=== PATIENT | male | born 1955 | race Caucasian/White ===

== ENCOUNTER 2016-12-08 16:17 | Inpatient (IN) | payer OTHER ==
[~2016-12-08 16:17] MED LIST: CEFTIN250 MG PO; DARVOCET-N 1001 EA PO; GLUCOSAMINE & C1 CAP PO; LOVENOX; PRENATAL-U CAPS1 CAP PO; TYLENOL #31 TAB PO; TYLENOL650 MG PO
[2016-12-08] MEDS ORDERED: CRESTOR5 M1 PO (17:09)
[2016-12-08] MEDS ORDERED: ASPIRIN325 M3 PO (17:09)
[2016-12-09 02:22] LABS: INR 1.2 INR (0.9-1.1); PROTHROMBIN TIME 13.8 SECONDS (9.0-13.6)
[2016-12-09 02:38] LABS: TSH-THYROID STIMULATING HORM. 12.9 uIU/ml (0.40-3.80)
[2016-12-09 06:20] LABS: ANION GAP 23 mmol/L (0-20); BLOOD UREA NITROGEN 20 mg/dl (6-24); CALCIUM 9.7 mg/dl (8.5-10.5); CARBON DIOXIDE-VENOUS 24 mmol/L (22-32); CHLORIDE 99 mmol/l (96-110); CREATININE 1.09 mg/dl (0.60-1.30); MAGNESIUM 2.2 mg/dl (1.3-2.6); POTASSIUM 4.4 mmol/L (3.7-5.1); SODIUM 142 mmol/L (135-145); eGFR VALUE FOR BLACK >60 mL/Min
[2016-12-09 06:44] LABS: GLUCOSE 65 mg/dL (70-110)
[2016-12-09 16:47] LABS: BODY FLUID TYPE PLEURAL
[2016-12-09 17:27] LABS: BODY FLUID APPEARANCE HAZY (CLEAR); BODY FLUID COLOR YELLOW (COLORLESS); BODY FLUID RBC COUNT 1000 cmm (0); BODY FLUID TYPE PLEURAL; BODY FLUID VOLUME 1100 ml; BODY FLUID WBC COUNT 139 cmm
[2016-12-10 01:17] LABS: INR 1.2 INR (0.9-1.1); PROTHROMBIN TIME 13.7 SECONDS (9.0-13.6)
[2016-12-10 05:00] LABS: BASO % 0.5 % (0-2); EOS % 1.1 % (0-7); EOSINOPHIL ABSOLUTE COUNT 0.1 tho/cmm (0.0-0.7); HCT-HEMATOCRIT 44.8 % (36.0-53.5); HGB-HEMOGLOBIN 14.3 gm/dl (13.5-17.0); IMMATURE GRANULOCYTES ABSOLUTE 0.01 tho/cmm (0-0.03); IMMATURE GRANULOCYTES PERCENT 0.1 % (0-0.3); LYMPH ABSOLUTE COUNT 0.9 tho/cmm (0.8-4.5); MCH (MEAN CORPUSCULAR HGB) 30.4 pg (28.0-32.0); MCHC MEAN CORPUSCULAR HGB CONC 31.9 % (32.0-36.0); MCV (MEAN CELL VOLUME) 95.3 fl (82.0-96.0); MEAN PLATELET VOLUME 10.8 cmc (9.4-12.4); MONO % 8.9 % (0-12); MONOCYTE ABSOLUTE COUNT 0.7 tho/cmm (0.0-1.2); NEUTROPHIL ABSOLUTE COUNT 5.7 tho/cmm (1.6-8.0); NEUTROPHIL-AUTOMATED 5.7 tho/cmm (1.6-8.0); NEUTROPHILS % 77.4 % (40-80); PLATELET COUNT 190 tho/cmm (150-450); RED CELL DISTRIBUTION WIDTH 18.5 % (12.4-16.4); WHITE BLOOD COUNT 7.4 tho/cmm (4.0-10.0)
[2016-12-10 05:29] LABS: ALBUMIN 2.9 g/dl (3.5-5.0); ALKALINE PHOSPHATASE 167 U/L (33-138); ALT/SGPT 28 U/L (12-78); ANION GAP 22 mmol/L (0-20); AST/SGOT 34 U/L (10-40); BLOOD UREA NITROGEN 21 mg/dl (6-24); CALCIUM 9.1 mg/dl (8.5-10.5); CARBON DIOXIDE-VENOUS 26 mmol/L (22-32); CHLORIDE 97 mmol/l (96-110); CREATININE 1.12 mg/dl (0.60-1.30); GLUCOSE 81 mg/dL (70-110); MAGNESIUM 2.1 mg/dl (1.3-2.6); POTASSIUM 3.8 mmol/L (3.7-5.1); SODIUM 141 mmol/L (135-145); eGFR VALUE FOR BLACK >60 mL/Min
[2016-12-11 06:17] LABS: ANION GAP 24 mmol/L (0-20); BLOOD UREA NITROGEN 26 mg/dl (6-24); CALCIUM 9.5 mg/dl (8.5-10.5); CARBON DIOXIDE-VENOUS 25 mmol/L (22-32); CHLORIDE 95 mmol/l (96-110); POTASSIUM 4.1 mmol/L (3.7-5.1); SODIUM 140 mmol/L (135-145); eGFR VALUE FOR BLACK 60 mL/Min
[2016-12-11 06:22] LABS: CREATININE 1.45 mg/dl (0.60-1.30)
[2016-12-11 06:23] LABS: GLUCOSE 68 mg/dL (70-110)
[2016-12-12 07:38] LABS: ANION GAP 25 mmol/L (0-20); BLOOD UREA NITROGEN 29 mg/dl (6-24); CALCIUM 9.1 mg/dl (8.5-10.5); CARBON DIOXIDE-VENOUS 25 mmol/L (22-32); CHLORIDE 95 mmol/l (96-110); CREATININE 1.55 mg/dl (0.60-1.30); MAGNESIUM 1.9 mg/dl (1.3-2.6); POTASSIUM 4.1 mmol/L (3.7-5.1); SODIUM 141 mmol/L (135-145); eGFR VALUE FOR BLACK 55 mL/Min
[2016-12-12 07:42] LABS: GLUCOSE 68 mg/dL (70-110)
[2016-12-13 03:31] LABS: BASO % 0.8 % (0-2); BASO ABSOLUTE COUNT 0.1 tho/cmm (0.0-0.2); EOS % 2.6 % (0-7); EOSINOPHIL ABSOLUTE COUNT 0.2 tho/cmm (0.0-0.7); HCT-HEMATOCRIT 45.8 % (36.0-53.5); HGB-HEMOGLOBIN 14.7 gm/dl (13.5-17.0); IMMATURE GRANULOCYTES ABSOLUTE 0.02 tho/cmm (0-0.03); IMMATURE GRANULOCYTES PERCENT 0.3 % (0-0.3); LYMPH % 11.9 % (20-45); LYMPH ABSOLUTE COUNT 0.9 tho/cmm (0.8-4.5); MCH (MEAN CORPUSCULAR HGB) 30.6 pg (28.0-32.0); MCHC MEAN CORPUSCULAR HGB CONC 32.1 % (32.0-36.0); MCV (MEAN CELL VOLUME) 95.4 fl (82.0-96.0); MEAN PLATELET VOLUME 10.6 cmc (9.4-12.4); MONO % 9.1 % (0-12); MONOCYTE ABSOLUTE COUNT 0.7 tho/cmm (0.0-1.2); NEUTROPHIL ABSOLUTE COUNT 5.6 tho/cmm (1.6-8.0); NEUTROPHIL-AUTOMATED 5.6 tho/cmm (1.6-8.0); NEUTROPHILS % 75.3 % (40-80); PLATELET COUNT 155 tho/cmm (150-450); RED CELL DISTRIBUTION WIDTH 18.5 % (12.4-16.4); WHITE BLOOD COUNT 7.4 tho/cmm (4.0-10.0)
[2016-12-13 03:44] LABS: ANION GAP 23 mmol/L (0-20); BLOOD UREA NITROGEN 31 mg/dl (6-24); CALCIUM 9.7 mg/dl (8.5-10.5); CARBON DIOXIDE-VENOUS 26 mmol/L (22-32); CHLORIDE 95 mmol/l (96-110); CREATININE 1.32 mg/dl (0.60-1.30); GLUCOSE 74 mg/dL (70-110); POTASSIUM 4.5 mmol/L (3.7-5.1); SODIUM 139 mmol/L (135-145); eGFR VALUE FOR BLACK >60 mL/Min
[2016-12-14 05:20] LABS: ANION GAP 23 mmol/L (0-20); BLOOD UREA NITROGEN 29 mg/dl (6-24); CALCIUM 9.4 mg/dl (8.5-10.5); CARBON DIOXIDE-VENOUS 28 mmol/L (22-32); CHLORIDE 91 mmol/l (96-110); CREATININE 1.39 mg/dl (0.60-1.30); GLUCOSE 84 mg/dL (70-110); SODIUM 138 mmol/L (135-145); eGFR VALUE FOR BLACK >60 mL/Min
[2016-12-15 03:51] LABS: BASO % 1.6 % (0-2); BASO ABSOLUTE COUNT 0.1 tho/cmm (0.0-0.2); EOS % 3.5 % (0-7); EOSINOPHIL ABSOLUTE COUNT 0.3 tho/cmm (0.0-0.7); HCT-HEMATOCRIT 45.2 % (36.0-53.5); HGB-HEMOGLOBIN 14.4 gm/dl (13.5-17.0); IMMATURE GRANULOCYTES ABSOLUTE 0.03 tho/cmm (0-0.03); IMMATURE GRANULOCYTES PERCENT 0.4 % (0-0.3); LYMPH % 11.9 % (20-45); LYMPH ABSOLUTE COUNT 0.9 tho/cmm (0.8-4.5); MCH (MEAN CORPUSCULAR HGB) 30.6 pg (28.0-32.0); MCHC MEAN CORPUSCULAR HGB CONC 31.9 % (32.0-36.0); MCV (MEAN CELL VOLUME) 96.2 fl (82.0-96.0); MEAN PLATELET VOLUME 10.8 cmc (9.4-12.4); MONO % 10.3 % (0-12); MONOCYTE ABSOLUTE COUNT 0.8 tho/cmm (0.0-1.2); NEUTROPHIL ABSOLUTE COUNT 5.4 tho/cmm (1.6-8.0); NEUTROPHIL-AUTOMATED 5.4 tho/cmm (1.6-8.0); NEUTROPHILS % 72.3 % (40-80); PLATELET COUNT 144 tho/cmm (150-450); RED CELL DISTRIBUTION WIDTH 18.6 % (12.4-16.4); WHITE BLOOD COUNT 7.5 tho/cmm (4.0-10.0)
[2016-12-15 04:13] LABS: ALB/GLOB RATIO 1.1 (0.8-2.0); ALBUMIN 3.3 g/dl (3.5-5.0); ALKALINE PHOSPHATASE 214 U/L (33-138); ALT/SGPT 37 U/L (12-78); BLOOD UREA NITROGEN 29 mg/dl (6-24); CALCIUM 9.5 mg/dl (8.5-10.5); CARBON DIOXIDE-VENOUS 28 mmol/L (22-32); CHLORIDE 91 mmol/l (96-110); SODIUM 138 mmol/L (135-145); eGFR VALUE FOR BLACK >60 mL/Min
[2016-12-15 04:17] LABS: ANION GAP 24 mmol/L (0-20)
[2016-12-15 04:18] LABS: AST/SGOT 43 U/L (10-40); GLUCOSE 65 mg/dL (70-110); POTASSIUM 4.9 mmol/L (3.7-5.1)
[2016-12-16 06:14] LABS: BASO % 1.7 % (0-2); BASO ABSOLUTE COUNT 0.1 tho/cmm (0.0-0.2); EOS % 2.6 % (0-7); EOSINOPHIL ABSOLUTE COUNT 0.2 tho/cmm (0.0-0.7); HCT-HEMATOCRIT 44.8 % (36.0-53.5); HGB-HEMOGLOBIN 14.2 gm/dl (13.5-17.0); IMMATURE GRANULOCYTES ABSOLUTE 0.01 tho/cmm (0-0.03); IMMATURE GRANULOCYTES PERCENT 0.2 % (0-0.3); LYMPH % 14.7 % (20-45); MCH (MEAN CORPUSCULAR HGB) 30.3 pg (28.0-32.0); MCHC MEAN CORPUSCULAR HGB CONC 31.7 % (32.0-36.0); MCV (MEAN CELL VOLUME) 95.5 fl (82.0-96.0); MEAN PLATELET VOLUME 11.2 cmc (9.4-12.4); MONO % 11.1 % (0-12); MONOCYTE ABSOLUTE COUNT 0.7 tho/cmm (0.0-1.2); NEUTROPHIL ABSOLUTE COUNT 4.6 tho/cmm (1.6-8.0); NEUTROPHIL-AUTOMATED 4.6 tho/cmm (1.6-8.0); NEUTROPHILS % 69.7 % (40-80); PLATELET COUNT 143 tho/cmm (150-450); RED BLOOD COUNT 4.69 mil/cmm (4.40-5.70); RED CELL DISTRIBUTION WIDTH 18.5 % (12.4-16.4); WHITE BLOOD COUNT 6.7 tho/cmm (4.0-10.0)
[2016-12-16 06:25] LABS: BLOOD UREA NITROGEN 24 mg/dl (6-24); CALCIUM 9.3 mg/dl (8.5-10.5); CARBON DIOXIDE-VENOUS 30 mmol/L (22-32); CHLORIDE 92 mmol/l (96-110); CREATININE 1.18 mg/dl (0.60-1.30); SODIUM 136 mmol/L (135-145); eGFR VALUE FOR BLACK >60 mL/Min
[2016-12-16 06:27] LABS: ANION GAP 19 mmol/L (0-20); POTASSIUM 4.6 mmol/L (3.7-5.1)
[2016-12-16 06:30] LABS: GLUCOSE 52 mg/dL (70-110)
[2016-12-17 04:48] LABS: ANION GAP 24 mmol/L (0-20); BLOOD UREA NITROGEN 25 mg/dl (6-24); CALCIUM 9.1 mg/dl (8.5-10.5); CARBON DIOXIDE-VENOUS 29 mmol/L (22-32); CHLORIDE 88 mmol/l (96-110); CREATININE 1.35 mg/dl (0.60-1.30); POTASSIUM 4.1 mmol/L (3.7-5.1); SODIUM 137 mmol/L (135-145); eGFR VALUE FOR BLACK >60 mL/Min
[2016-12-17 04:55] LABS: BASO ABSOLUTE COUNT 0.1 tho/cmm (0.0-0.2); EOS % 2.8 % (0-7); EOSINOPHIL ABSOLUTE COUNT 0.2 tho/cmm (0.0-0.7); HCT-HEMATOCRIT 43.4 % (36.0-53.5); HGB-HEMOGLOBIN 13.8 gm/dl (13.5-17.0); IMMATURE GRANULOCYTES ABSOLUTE 0.03 tho/cmm (0-0.03); IMMATURE GRANULOCYTES PERCENT 0.5 % (0-0.3); LYMPH % 16.3 % (20-45); LYMPH ABSOLUTE COUNT 1.1 tho/cmm (0.8-4.5); MCH (MEAN CORPUSCULAR HGB) 30.5 pg (28.0-32.0); MCHC MEAN CORPUSCULAR HGB CONC 31.8 % (32.0-36.0); MEAN PLATELET VOLUME 11.4 cmc (9.4-12.4); MONO % 13.7 % (0-12); MONOCYTE ABSOLUTE COUNT 0.9 tho/cmm (0.0-1.2); NEUTROPHIL ABSOLUTE COUNT 4.2 tho/cmm (1.6-8.0); NEUTROPHIL-AUTOMATED 4.2 tho/cmm (1.6-8.0); NEUTROPHILS % 64.7 % (40-80); PLATELET COUNT 142 tho/cmm (150-450); RED BLOOD COUNT 4.52 mil/cmm (4.40-5.70); RED CELL DISTRIBUTION WIDTH 18.5 % (12.4-16.4); WHITE BLOOD COUNT 6.5 tho/cmm (4.0-10.0)
[2016-12-17 04:59] LABS: GLUCOSE 65 mg/dL (70-110)
[2016-12-18 05:25] LABS: BASO % 2.1 % (0-2); BASO ABSOLUTE COUNT 0.2 tho/cmm (0.0-0.2); EOS % 2.8 % (0-7); EOSINOPHIL ABSOLUTE COUNT 0.2 tho/cmm (0.0-0.7); HCT-HEMATOCRIT 44.3 % (36.0-53.5); IMMATURE GRANULOCYTES ABSOLUTE 0.02 tho/cmm (0-0.03); IMMATURE GRANULOCYTES PERCENT 0.3 % (0-0.3); LYMPH % 11.3 % (20-45); LYMPH ABSOLUTE COUNT 0.8 tho/cmm (0.8-4.5); MCH (MEAN CORPUSCULAR HGB) 30.2 pg (28.0-32.0); MCHC MEAN CORPUSCULAR HGB CONC 31.6 % (32.0-36.0); MCV (MEAN CELL VOLUME) 95.7 fl (82.0-96.0); MEAN PLATELET VOLUME 11.6 cmc (9.4-12.4); MONO % 13.7 % (0-12); NEUTROPHILS % 69.8 % (40-80); PLATELET COUNT 143 tho/cmm (150-450); RED BLOOD COUNT 4.63 mil/cmm (4.40-5.70); RED CELL DISTRIBUTION WIDTH 18.6 % (12.4-16.4); WHITE BLOOD COUNT 7.1 tho/cmm (4.0-10.0)
[2016-12-18 05:32] LABS: ALBUMIN 3.1 g/dl (3.5-5.0); ALKALINE PHOSPHATASE 226 U/L (33-138); ALT/SGPT 34 U/L (12-78); ANION GAP 26 mmol/L (0-20); AST/SGOT 38 U/L (10-40); BLOOD UREA NITROGEN 23 mg/dl (6-24); CALCIUM 9.1 mg/dl (8.5-10.5); CARBON DIOXIDE-VENOUS 25 mmol/L (22-32); CHLORIDE 90 mmol/l (96-110); CREATININE 1.19 mg/dl (0.60-1.30); POTASSIUM 4.2 mmol/L (3.7-5.1); SODIUM 137 mmol/L (135-145); eGFR VALUE FOR BLACK >60 mL/Min
[2016-12-18 05:35] LABS: GLUCOSE 54 mg/dL (70-110)
[2016-12-19 03:53] LABS: BLOOD UREA NITROGEN 27 mg/dl (6-24); CALCIUM 9.4 mg/dl (8.5-10.5); CARBON DIOXIDE-VENOUS 26 mmol/L (22-32); CHLORIDE 90 mmol/l (96-110); CREATININE 1.38 mg/dl (0.60-1.30); GLUCOSE 74 mg/dL (70-110); SODIUM 138 mmol/L (135-145); eGFR VALUE FOR BLACK >60 mL/Min
[2016-12-19 03:55] LABS: ANION GAP 26 mmol/L (0-20); MAGNESIUM 1.9 mg/dl (1.3-2.6)
[2016-12-19 03:56] LABS: POTASSIUM 4.4 mmol/L (3.7-5.1)
[2016-12-19 11:04] LABS: BASO % 1.4 % (0-2); BASO ABSOLUTE COUNT 0.1 tho/cmm (0.0-0.2); EOS % 1.6 % (0-7); EOSINOPHIL ABSOLUTE COUNT 0.1 tho/cmm (0.0-0.7); HCT-HEMATOCRIT 44.2 % (36.0-53.5); HGB-HEMOGLOBIN 14.2 gm/dl (13.5-17.0); MCH (MEAN CORPUSCULAR HGB) 30.8 pg (28.0-32.0); MCHC MEAN CORPUSCULAR HGB CONC 32.1 % (32.0-36.0); MCV (MEAN CELL VOLUME) 95.9 fl (82.0-96.0); MEAN PLATELET VOLUME 11.3 cmc (9.4-12.4); MONO % 12.1 % (0-12); MONOCYTE ABSOLUTE COUNT 0.9 tho/cmm (0.0-1.2); NEUTROPHIL ABSOLUTE COUNT 4.9 tho/cmm (1.6-8.0); NEUTROPHIL-AUTOMATED 4.9 tho/cmm (1.6-8.0); NEUTROPHILS % 70.6 % (40-80); PLATELET COUNT 113 tho/cmm (150-450); RED BLOOD COUNT 4.61 mil/cmm (4.40-5.70); RED CELL DISTRIBUTION WIDTH 18.4 % (12.4-16.4)
[2016-12-19 11:12] LABS: INR 1.1 INR (0.9-1.1); PROTHROMBIN TIME 12.4 SECONDS (9.0-13.6)
[2016-12-20 05:21] LABS: BASO % 0.2 % (0-2); HCT-HEMATOCRIT 42.6 % (36.0-53.5); HGB-HEMOGLOBIN 13.4 gm/dl (13.5-17.0); IMMATURE GRANULOCYTES ABSOLUTE 0.04 tho/cmm (0-0.03); IMMATURE GRANULOCYTES PERCENT 0.4 % (0-0.3); MCH (MEAN CORPUSCULAR HGB) 30.5 pg (28.0-32.0); MCHC MEAN CORPUSCULAR HGB CONC 31.5 % (32.0-36.0); MEAN PLATELET VOLUME 11.3 cmc (9.4-12.4); MONO % 9.8 % (0-12); MONOCYTE ABSOLUTE COUNT 0.9 tho/cmm (0.0-1.2); NEUTROPHIL ABSOLUTE COUNT 7.4 tho/cmm (1.6-8.0); NEUTROPHIL-AUTOMATED 7.4 tho/cmm (1.6-8.0); NEUTROPHILS % 78.6 % (40-80); PLATELET COUNT 106 tho/cmm (150-450); RED BLOOD COUNT 4.39 mil/cmm (4.40-5.70); RED CELL DISTRIBUTION WIDTH 18.7 % (12.4-16.4); WHITE BLOOD COUNT 9.4 tho/cmm (4.0-10.0)
[2016-12-20 05:39] LABS: ALB/GLOB RATIO 0.8 (0.8-2.0); ALKALINE PHOSPHATASE 215 U/L (33-138); ANION GAP 29 mmol/L (0-20); BILIRUBIN,TOTAL 0.9 mg/dl (0.0-1.5); BLOOD UREA NITROGEN 32 mg/dl (6-24); CALCIUM 9.1 mg/dl (8.5-10.5); CARBON DIOXIDE-VENOUS 23 mmol/L (22-32); CHLORIDE 89 mmol/l (96-110); CREATININE 1.68 mg/dl (0.60-1.30); GLUCOSE 76 mg/dL (70-110); POTASSIUM 4.4 mmol/L (3.7-5.1); SODIUM 137 mmol/L (135-145); eGFR VALUE FOR BLACK 50 mL/Min
[2016-12-20 05:50] LABS: ALT/SGPT 62 U/L (12-78); AST/SGOT 150 U/L (10-40)
[2016-12-21 04:59] LABS: BASO % 1.1 % (0-2); BASO ABSOLUTE COUNT 0.1 tho/cmm (0.0-0.2); EOS % 0.2 % (0-7); HCT-HEMATOCRIT 43.3 % (36.0-53.5); HGB-HEMOGLOBIN 13.4 gm/dl (13.5-17.0); IMMATURE GRANULOCYTES ABSOLUTE 0.03 tho/cmm (0-0.03); IMMATURE GRANULOCYTES PERCENT 0.3 % (0-0.3); LYMPH % 14.5 % (20-45); LYMPH ABSOLUTE COUNT 1.3 tho/cmm (0.8-4.5); MCH (MEAN CORPUSCULAR HGB) 30.5 pg (28.0-32.0); MCHC MEAN CORPUSCULAR HGB CONC 30.9 % (32.0-36.0); MCV (MEAN CELL VOLUME) 98.4 fl (82.0-96.0); MEAN PLATELET VOLUME 11.4 cmc (9.4-12.4); MONO % 13.7 % (0-12); MONOCYTE ABSOLUTE COUNT 1.3 tho/cmm (0.0-1.2); NEUTROPHIL ABSOLUTE COUNT 6.5 tho/cmm (1.6-8.0); NEUTROPHIL-AUTOMATED 6.5 tho/cmm (1.6-8.0); NEUTROPHILS % 70.2 % (40-80); PLATELET COUNT 100 tho/cmm (150-450); WHITE BLOOD COUNT 9.2 tho/cmm (4.0-10.0)
[2016-12-21 05:10] LABS: ANION GAP 29 mmol/L (0-20); BLOOD UREA NITROGEN 36 mg/dl (6-24); CALCIUM 9.2 mg/dl (8.5-10.5); CARBON DIOXIDE-VENOUS 22 mmol/L (22-32); CHLORIDE 89 mmol/l (96-110); CREATININE 1.69 mg/dl (0.60-1.30); MAGNESIUM 2.1 mg/dl (1.3-2.6); PHOSPHOROUS 3.8 mg/dl (2.5-4.9); POTASSIUM 4.9 mmol/L (3.7-5.1); SODIUM 135 mmol/L (135-145); eGFR VALUE FOR BLACK 50 mL/Min
[2016-12-21 05:15] LABS: GLUCOSE 70 mg/dL (70-110)
[2016-12-21 05:20] LABS: PROCALCITONIN 0.86 ng/ml (0.05-0.09)
[2016-12-22 04:56] LABS: BASO % 0.7 % (0-2); BASO ABSOLUTE COUNT 0.1 tho/cmm (0.0-0.2); EOS % 0.5 % (0-7); HCT-HEMATOCRIT 39.8 % (36.0-53.5); HGB-HEMOGLOBIN 12.6 gm/dl (13.5-17.0); IMMATURE GRANULOCYTES ABSOLUTE 0.05 tho/cmm (0-0.03); IMMATURE GRANULOCYTES PERCENT 0.7 % (0-0.3); LYMPH % 16.5 % (20-45); LYMPH ABSOLUTE COUNT 1.3 tho/cmm (0.8-4.5); MCH (MEAN CORPUSCULAR HGB) 30.7 pg (28.0-32.0); MCHC MEAN CORPUSCULAR HGB CONC 31.7 % (32.0-36.0); MCV (MEAN CELL VOLUME) 96.8 fl (82.0-96.0); MEAN PLATELET VOLUME 11.6 cmc (9.4-12.4); MONO % 14.2 % (0-12); MONOCYTE ABSOLUTE COUNT 1.1 tho/cmm (0.0-1.2); NEUTROPHIL ABSOLUTE COUNT 5.2 tho/cmm (1.6-8.0); NEUTROPHIL-AUTOMATED 5.2 tho/cmm (1.6-8.0); NEUTROPHILS % 67.4 % (40-80); PLATELET COUNT 109 tho/cmm (150-450); RED BLOOD COUNT 4.11 mil/cmm (4.40-5.70); RED CELL DISTRIBUTION WIDTH 19.1 % (12.4-16.4); WHITE BLOOD COUNT 7.7 tho/cmm (4.0-10.0)
[2016-12-22 05:00] LABS: ALB/GLOB RATIO 0.7 (0.8-2.0); ALBUMIN 2.8 g/dl (3.5-5.0); ALKALINE PHOSPHATASE 204 U/L (33-138); ALT/SGPT 47 U/L (12-78); ANION GAP 23 mmol/L (0-20); BILIRUBIN,TOTAL 0.8 mg/dl (0.0-1.5); BLOOD UREA NITROGEN 39 mg/dl (6-24); CALCIUM 8.9 mg/dl (8.5-10.5); CARBON DIOXIDE-VENOUS 27 mmol/L (22-32); CHLORIDE 89 mmol/l (96-110); CREATININE 1.53 mg/dl (0.60-1.30); POTASSIUM 4.5 mmol/L (3.7-5.1); SODIUM 134 mmol/L (135-145); eGFR VALUE FOR BLACK 55 mL/Min
[2016-12-22 05:26] LABS: AST/SGOT 72 U/L (10-40)
[2016-12-22 05:27] LABS: GLUCOSE 70 mg/dL (70-110)
[2016-12-24 10:48] LABS: ANION GAP 22 mmol/L (0-20); BLOOD UREA NITROGEN 37 mg/dl (6-24); CALCIUM 9.5 mg/dl (8.5-10.5); CARBON DIOXIDE-VENOUS 30 mmol/L (22-32); CHLORIDE 89 mmol/l (96-110); CREATININE 1.25 mg/dl (0.60-1.30); GLUCOSE 81 mg/dL (70-110); POTASSIUM 4.3 mmol/L (3.7-5.1); SODIUM 137 mmol/L (135-145); eGFR VALUE FOR BLACK 71 mL/Min
[2016-12-25 05:27] LABS: ANION GAP 27 mmol/L (0-20); BLOOD UREA NITROGEN 41 mg/dl (6-24); CALCIUM 9.2 mg/dl (8.5-10.5); CARBON DIOXIDE-VENOUS 25 mmol/L (22-32); CHLORIDE 89 mmol/l (96-110); CREATININE 1.35 mg/dl (0.60-1.30); GLUCOSE 97 mg/dL (70-110); SODIUM 135 mmol/L (135-145); eGFR VALUE FOR BLACK 64 mL/Min
[2016-12-25 05:32] LABS: POTASSIUM 5.5 mmol/L (3.7-5.1)
[2016-12-26 14:06] LABS: ANION GAP 31 mmol/L (0-20); BLOOD UREA NITROGEN 52 mg/dl (6-24); CALCIUM 9.3 mg/dl (8.5-10.5); CARBON DIOXIDE-VENOUS 24 mmol/L (22-32); CHLORIDE 88 mmol/l (96-110); CREATININE 1.42 mg/dl (0.60-1.30); GLUCOSE 78 mg/dL (70-110); POTASSIUM 4.8 mmol/L (3.7-5.1); SODIUM 138 mmol/L (135-145); eGFR VALUE FOR BLACK 60 mL/Min
[2016-12-27 05:05] LABS: BASO % 0.1 % (0-2); EOS % 0.5 % (0-7); HGB-HEMOGLOBIN 13.4 gm/dl (13.5-17.0); IMMATURE GRANULOCYTES ABSOLUTE 0.01 tho/cmm (0-0.03); IMMATURE GRANULOCYTES PERCENT 0.1 % (0-0.3); LYMPH % 9.1 % (20-45); LYMPH ABSOLUTE COUNT 0.7 tho/cmm (0.8-4.5); MCH (MEAN CORPUSCULAR HGB) 30.9 pg (28.0-32.0); MCHC MEAN CORPUSCULAR HGB CONC 31.9 % (32.0-36.0); MCV (MEAN CELL VOLUME) 96.8 fl (82.0-96.0); MEAN PLATELET VOLUME 11.1 cmc (9.4-12.4); MONO % 3.2 % (0-12); MONOCYTE ABSOLUTE COUNT 0.2 tho/cmm (0.0-1.2); NEUTROPHIL ABSOLUTE COUNT 6.6 tho/cmm (1.6-8.0); NEUTROPHIL-AUTOMATED 6.6 tho/cmm (1.6-8.0); PLATELET COUNT 200 tho/cmm (150-450); RED BLOOD COUNT 4.34 mil/cmm (4.40-5.70); RED CELL DISTRIBUTION WIDTH 19.5 % (12.4-16.4); WHITE BLOOD COUNT 7.6 tho/cmm (4.0-10.0)
[2016-12-27 05:42] LABS: BLOOD UREA NITROGEN 53 mg/dl (6-24); CALCIUM 9.2 mg/dl (8.5-10.5); CARBON DIOXIDE-VENOUS 26 mmol/L (22-32); CHLORIDE 88 mmol/l (96-110); CREATININE 1.25 mg/dl (0.60-1.30); SODIUM 136 mmol/L (135-145); eGFR VALUE FOR BLACK 71 mL/Min
[2016-12-27 05:43] LABS: ANION GAP 27 mmol/L (0-20); MAGNESIUM 2.2 mg/dl (1.3-2.6)
[2016-12-27 05:44] LABS: GLUCOSE 63 mg/dL (70-110); POTASSIUM 4.9 mmol/L (3.7-5.1)
--- NOTE | 2016-12-27 16:16 | NUR ---
1520- THORACENTESIS WITH DR WALLACE AT BEDSIDE, REMOVED 1500ML FLUID PATIENT PRESSURE HELD TO [facility] FOR 10 MINUTES AND PATIENT LAYING IN BED INFORMED HIM TO LAY IN BED FOR 1 HOUR BUT STATES HE CAN ONLY DO IT FOR A COUPLE MINUTES. RECEIVED CALL FROM RADIOLOGY AT 1600 THAT THERE IS NOT PNEUMO PATIENT REQUESTING PAIN MEDICATION AT THIS TIME. RECIEVED X2 NORCO. THIS RN TOOK PLEURAL FLUID DOWN TO LAB. TIME OUT AND CONSENT DONE IN THE ROOM
[2016-12-27 17:48] LABS: BODY FLUID TYPE PLEURAL
[2016-12-27 17:54] LABS: BODY FLUID APPEARANCE BLOODY (CLEAR); BODY FLUID COLOR RED (COLORLESS); BODY FLUID RBC COUNT 80000 cmm (0); BODY FLUID TYPE PLEURAL; BODY FLUID VOLUME 1600 ml; BODY FLUID WBC COUNT 469 cmm
[2016-12-27 17:55] LABS: BODY FLUID EOSINOPHILS 2 %; BODY FLUID LYMPHOCYTES 12 %; BODY FLUID MACROPHAGES 13 %; BODY FLUID MESOTHELIAL CELLS 1 %; BODY FLUID NEUTROPHILS 72 %
[2016-12-29 05:37] LABS: BASO % 0.1 % (0-2); EOS % 1.4 % (0-7); EOSINOPHIL ABSOLUTE COUNT 0.1 tho/cmm (0.0-0.7); HCT-HEMATOCRIT 38.2 % (36.0-53.5); HGB-HEMOGLOBIN 12.2 gm/dl (13.5-17.0); IMMATURE GRANULOCYTES ABSOLUTE 0.01 tho/cmm (0-0.03); IMMATURE GRANULOCYTES PERCENT 0.1 % (0-0.3); LYMPH % 5.4 % (20-45); LYMPH ABSOLUTE COUNT 0.4 tho/cmm (0.8-4.5); MCH (MEAN CORPUSCULAR HGB) 30.5 pg (28.0-32.0); MCHC MEAN CORPUSCULAR HGB CONC 31.9 % (32.0-36.0); MCV (MEAN CELL VOLUME) 95.5 fl (82.0-96.0); MEAN PLATELET VOLUME 11.4 cmc (9.4-12.4); MONO % 0.4 % (0-12); NEUTROPHIL ABSOLUTE COUNT 6.5 tho/cmm (1.6-8.0); NEUTROPHIL-AUTOMATED 6.5 tho/cmm (1.6-8.0); NEUTROPHILS % 92.6 % (40-80); PLATELET COUNT 163 tho/cmm (150-450); RED CELL DISTRIBUTION WIDTH 18.9 % (12.4-16.4)
[2016-12-29 05:56] LABS: ALB/GLOB RATIO 0.7 (0.8-2.0); ALBUMIN 2.6 g/dl (3.5-5.0); ALKALINE PHOSPHATASE 217 U/L (33-138); ALT/SGPT 91 U/L (12-78); ANION GAP 27 mmol/L (0-20); AST/SGOT 158 U/L (10-40); BILIRUBIN,TOTAL 0.9 mg/dl (0.0-1.5); BLOOD UREA NITROGEN 45 mg/dl (6-24); CALCIUM 9.2 mg/dl (8.5-10.5); CARBON DIOXIDE-VENOUS 28 mmol/L (22-32); CHLORIDE 89 mmol/l (96-110); CREATININE 1.18 mg/dl (0.60-1.30); GLUCOSE 81 mg/dL (70-110); MAGNESIUM 2.1 mg/dl (1.3-2.6); PHOSPHOROUS 2.4 mg/dl (2.5-4.9); POTASSIUM 4.2 mmol/L (3.7-5.1); SODIUM 140 mmol/L (135-145); eGFR VALUE FOR BLACK 76 mL/Min
--- NOTE | 2016-12-30 22:20 | NUR ---
HS SNACK OF COTTAGE CHEESE AND STRAWBERRIES GIVEN. PT TO NOTIFY RN IF S/S OF HYPOGLYCEMIA THROUGHOUT THE NIGHT. PT V/U.
[2016-12-31 06:04] LABS: EOS % 3.1 % (0-7); EOSINOPHIL ABSOLUTE COUNT 0.1 tho/cmm (0.0-0.7); HCT-HEMATOCRIT 37.2 % (36.0-53.5); HGB-HEMOGLOBIN 11.6 gm/dl (13.5-17.0); LYMPH % 33.5 % (20-45); LYMPH ABSOLUTE COUNT 0.7 tho/cmm (0.8-4.5); MCH (MEAN CORPUSCULAR HGB) 30.1 pg (28.0-32.0); MCHC MEAN CORPUSCULAR HGB CONC 31.2 % (32.0-36.0); MCV (MEAN CELL VOLUME) 96.6 fl (82.0-96.0); MEAN PLATELET VOLUME 11.3 cmc (9.4-12.4); NEUTROPHIL ABSOLUTE COUNT 1.2 tho/cmm (1.6-8.0); NEUTROPHIL-AUTOMATED 1.2 tho/cmm (1.6-8.0); NEUTROPHILS % 61.4 % (40-80); PLATELET COUNT 131 tho/cmm (150-450); RED BLOOD COUNT 3.85 mil/cmm (4.40-5.70); RED CELL DISTRIBUTION WIDTH 18.9 % (12.4-16.4)
[2016-12-31 06:10] LABS: WHITE BLOOD COUNT 1.9 tho/cmm (4.0-10.0)
[2016-12-31 06:28] LABS: ANION GAP 24 mmol/L (0-20); BLOOD UREA NITROGEN 42 mg/dl (6-24); CALCIUM 9.2 mg/dl (8.5-10.5); CARBON DIOXIDE-VENOUS 28 mmol/L (22-32); CHLORIDE 90 mmol/l (96-110); CREATININE 1.22 mg/dl (0.60-1.30); GLUCOSE 72 mg/dL (70-110); POTASSIUM 4.4 mmol/L (3.7-5.1); SODIUM 138 mmol/L (135-145); eGFR VALUE FOR BLACK 73 mL/Min
[2017-01-01] MEDS ORDERED: ELIQUIS2.5 M1 PO (13:57)
[2017-01-01] MEDS ORDERED: LANOXIN125 MC3 PO (14:00)
[2017-01-01] MEDS ORDERED: TOPROL XL100 M1 PO (14:03)
[2017-01-01] MEDS ORDERED: NORCO 5-325 TA1 EACH PO (14:04)
[2017-01-01] MEDS ORDERED: DEMADEX20 M1 PO (14:10)
[2017-01-01] MEDS ORDERED: K-TAB ER10 MEQ PO (14:12)
== END 2017-01-01 18:00 | DRG 982 ==
LOC: PCUB 16:17 → ORW 12-19 10:04 → PACU 12-19 11:43 → PCUB 12-19 12:29 → 5WF 12-24 17:30
PROVIDERS: Internal Medicine Cardiovascular Disease; Internal Medicine Clinical Cardiac Electrophysiology; Internal Medicine Critical Care Medicine; Internal Medicine Hematology & Oncology; Internal Medicine Pulmonary Disease; Nurse Practitioner; Physician Assistant Medical; Radiology Diagnostic Radiology; Surgery; ADMIT Internal Medicine Hematology & Oncology
PROC: 0B9 Respiratory System, Drainage (ICD-10-PCS; 2016-12-09)
PROC: 0FB03ZX Excision of Liver, Percutaneous Approach, Diagnostic (ICD-10-PCS; principal; 2016-12-25)
PROC: 3E06305 Introduction of Other Antineoplastic into Central Artery, Percutaneous Approach (ICD-10-PCS; 2016-12-25)
PROC: B245ZZ4 Ultrasonography of Left Heart, Transesophageal (ICD-10-PCS; 2016-12-25)
PROC: 0W993ZX Drainage of Right Pleural Cavity, Percutaneous Approach, Diagnostic (ICD-10-PCS; 2016-12-28)
DX: I50.43 Acute on chronic combined systolic (congestive) and diastolic (congestive) heart failure (principal); C25.9 Malignant neoplasm of pancreas, unspecified; J91.0 Malignant pleural effusion; N17.9 Acute kidney failure, unspecified; C83.30 Diffuse large B-cell lymphoma, unspecified site; I42.9 Cardiomyopathy, unspecified; L03.115 Cellulitis of right lower limb; I95.9 Hypotension, unspecified; L03.116 Cellulitis of left lower limb; Z68.42 Body mass index [BMI] 45.0-49.9, adult; B02.9 Zoster without complications; E16.2 Hypoglycemia, unspecified; E66.01 Morbid (severe) obesity due to excess calories; E78.5 Hyperlipidemia, unspecified; G25.81 Restless legs syndrome; G47.33 Obstructive sleep apnea (adult) (pediatric); I27.2 Other secondary pulmonary hypertension; I34.0 Nonrheumatic mitral (valve) insufficiency; I48.91 Unspecified atrial fibrillation; I51.3 Intracardiac thrombosis, not elsewhere classified; I87.2 Venous insufficiency (chronic) (peripheral); I87.8 Other specified disorders of veins; K59.00 Constipation, unspecified; L30.9 Dermatitis, unspecified; R09.02 Hypoxemia; R16.0 Hepatomegaly, not elsewhere classified; R19.00 Intra-abdominal and pelvic swelling, mass and lump, unspecified site; R91.8 Other nonspecific abnormal finding of lung field; S81.801A Unspecified open wound, right lower leg, initial encounter; S81.802A Unspecified open wound, left lower leg, initial encounter; Z51.5 Encounter for palliative care
CPT/HCPCS: C1751; J0131; J0282; J0690; J1100; J1160; J1250; J1626; J1650; J1940; J2250; J2405; J2469; J2543; J2997; J3010; J3370; J7030; J7040; J7050; J9201; J9264

== ENCOUNTER 2017-02-03 21:34 | Inpatient (IN) | payer OTHER ==
[~2017-02-03 21:34] MED LIST changes: +ASPIRIN325 M3 PO; +CRESTOR5 M1 PO; +DEMADEX20 M1 PO; +ELIQUIS2.5 M1 PO; +K-TAB ER10 MEQ PO; +LANOXIN125 MC3 PO; +NORCO 5-325 TA1 EACH PO; +TOPROL XL100 M1 PO
[2017-02-03] MEDS ORDERED: NORCO 5-325 TA1 EACH PO (22:06)
[2017-02-03] MEDS ORDERED: SILVADENE20 G1 TOP (22:07)
[2017-02-03] MEDS ORDERED: SANTYL30 G1 TP (22:07)
[2017-02-03 23:01] LABS: BASO ABSOLUTE COUNT 0.1 tho/cmm (0.0-0.2); EOS % 1.7 % (0-7); EOSINOPHIL ABSOLUTE COUNT 0.1 tho/cmm (0.0-0.7); HCT-HEMATOCRIT 27.2 % (36.0-53.5); HGB-HEMOGLOBIN 8.9 gm/dl (13.5-17.0); IMMATURE GRANULOCYTES ABSOLUTE 0.29 tho/cmm (0-0.03); IMMATURE GRANULOCYTES PERCENT 7.1 % (0-0.3); LYMPH % 17.2 % (20-45); LYMPH ABSOLUTE COUNT 0.7 tho/cmm (0.8-4.5); MCH (MEAN CORPUSCULAR HGB) 31.3 pg (28.0-32.0); MCHC MEAN CORPUSCULAR HGB CONC 32.7 % (32.0-36.0); MCV (MEAN CELL VOLUME) 95.8 fl (82.0-96.0); MEAN PLATELET VOLUME 10.3 cmc (9.4-12.4); MONO % 6.1 % (0-12); MONOCYTE ABSOLUTE COUNT 0.3 tho/cmm (0.0-1.2); NEUTROPHIL ABSOLUTE COUNT 2.7 tho/cmm (1.6-8.0); NEUTROPHIL-AUTOMATED 2.7 tho/cmm (1.6-8.0); NEUTROPHILS % 65.9 % (40-80); PLATELET COUNT 117 tho/cmm (150-450); RED BLOOD COUNT 2.84 mil/cmm (4.40-5.70); RED CELL DISTRIBUTION WIDTH 19.8 % (12.4-16.4); WHITE BLOOD COUNT 4.1 tho/cmm (4.0-10.0)
[2017-02-03 23:20] LABS: ALB/GLOB RATIO 0.7 (0.8-2.0); ALBUMIN 2.7 g/dl (3.5-5.0); ALKALINE PHOSPHATASE 182 U/L (33-138); ALT/SGPT 43 U/L (12-78); ANION GAP 20 mmol/L (0-20); AST/SGOT 46 U/L (10-40); BILIRUBIN,TOTAL 0.9 mg/dl (0.0-1.5); BLOOD UREA NITROGEN 29 mg/dl (6-24); CARBON DIOXIDE-VENOUS 31 mmol/L (22-32); CHLORIDE 91 mmol/l (96-110); CREATININE 1.39 mg/dl (0.60-1.30); GLUCOSE 91 mg/dL (70-110); POTASSIUM 3.7 mmol/L (3.7-5.1); SODIUM 138 mmol/L (135-145); eGFR VALUE FOR BLACK 62 mL/Min
[2017-02-03 23:42] LABS: PROCALCITONIN 0.32 ng/ml (0.05-0.09)
[2017-02-04 00:23] LABS: URINE BILIRUBIN NEGATIVE (NEG); URINE BLOOD SMALL (NEG); URINE GLUCOSE (UA) NEGATIVE (NEG); URINE KETONE NEGATIVE (NEG); URINE LEUKOCYTE ESTERASE POSITIVE (NEG); URINE NITRITE POSITIVE (NEG); URINE PROTEIN SMALL (NEG)
[2017-02-04 00:25] LABS: URINE APPEARANCE HAZY; URINE COLOR YELLOW
[2017-02-04 00:32] LABS: URINE WBC 80-90 /[HPF] (0-5)
[2017-02-04 00:33] LABS: URINE BACTERIA 4+; URINE EPITHELIAL CELLS 0-1 /[HPF] (0-10); URINE RBC 0-3 /[HPF] (0-5)
[2017-02-04 02:43] LABS: INR 1.1 INR (0.9-1.1); PROTHROMBIN TIME 12.5 SECONDS (9.0-13.6)
[2017-02-04 02:45] LABS: ABG CO2 ARTERIAL 32 mmol/L (21-27); ARTERIAL BLD GAS O2 SATURATION 93 % (95-98); ARTERIAL BLOOD GAS PCO2 42 mmHg (32-45); ARTERIAL PO2 59 mmHg (70-100); BICARBONATE 31 mmol/L (21-28); BLOOD GAS BASE EXCESS 7 mM/L (-/+3); PH 7.48 Units (7.35-7.45)
[2017-02-04 03:00] LABS: C-REACTIVE PROTEIN 12.8 mg/dl (0-0.9); MAGNESIUM 1.9 mg/dl (1.8-2.6); PHOSPHOROUS 2.9 mg/dl (2.5-4.9)
[2017-02-04 03:03] LABS: TSH-THYROID STIMULATING HORM. 25.5 uIU/ml (0.40-3.80)
[2017-02-04 04:40] LABS: ABG CO2 ARTERIAL 31 mmol/L (21-27); ARTERIAL BLD GAS O2 SATURATION 99 % (95-98); ARTERIAL BLOOD GAS PCO2 45 mmHg (32-45); ARTERIAL PO2 140 mmHg (70-100); BICARBONATE 29 mmol/L (21-28); BLOOD GAS BASE EXCESS 5 mM/L (-/+3); PH 7.43 Units (7.35-7.45)
[2017-02-05 04:33] LABS: HCT-HEMATOCRIT 25.2 % (36.0-53.5); HGB-HEMOGLOBIN 8.2 gm/dl (13.5-17.0); MCH (MEAN CORPUSCULAR HGB) 31.1 pg (28.0-32.0); MCHC MEAN CORPUSCULAR HGB CONC 32.5 % (32.0-36.0); MCV (MEAN CELL VOLUME) 95.5 fl (82.0-96.0); MEAN PLATELET VOLUME 9.5 cmc (9.4-12.4); NEUTROPHIL-AUTOMATED 3.7 tho/cmm (1.6-8.0); PLATELET COUNT 70 tho/cmm (150-450); RED BLOOD COUNT 2.64 mil/cmm (4.40-5.70); RED CELL DISTRIBUTION WIDTH 20.6 % (12.4-16.4); WHITE BLOOD COUNT 5.3 tho/cmm (4.0-10.0)
[2017-02-05 04:36] LABS: INR 1.3 INR (0.9-1.1); PROTHROMBIN TIME 15.4 SECONDS (9.0-13.6)
[2017-02-05 04:42] LABS: ANION GAP 19 mmol/L (0-20); BLOOD UREA NITROGEN 19 mg/dl (6-24); CALCIUM 7.4 mg/dl (8.5-10.5); CARBON DIOXIDE-VENOUS 25 mmol/L (22-32); CHLORIDE 99 mmol/l (96-110); CREATININE 1.04 mg/dl (0.60-1.30); GLUCOSE 85 mg/dL (70-110); POTASSIUM 3.2 mmol/L (3.7-5.1); SODIUM 140 mmol/L (135-145); eGFR VALUE FOR BLACK 88 mL/Min
[2017-02-05 04:46] LABS: BASO % 2.5 % (0-2); BASO ABSOLUTE COUNT 0.1 tho/cmm (0.0-0.2); EOS % 2.9 % (0-7); EOSINOPHIL ABSOLUTE COUNT 0.2 tho/cmm (0.0-0.7); IMMATURE GRANULOCYTES ABSOLUTE 0.39 tho/cmm (0-0.03); IMMATURE GRANULOCYTES PERCENT 7.4 % (0-0.3); LYMPH % 11.2 % (20-45); LYMPH ABSOLUTE COUNT 0.6 tho/cmm (0.8-4.5); MONO % 5.7 % (0-12); MONOCYTE ABSOLUTE COUNT 0.3 tho/cmm (0.0-1.2); NEUTROPHIL ABSOLUTE COUNT 3.7 tho/cmm (1.6-8.0); NEUTROPHILS % 70.3 % (40-80)
[2017-02-06 03:50] LABS: HCT-HEMATOCRIT 25.1 % (36.0-53.5); HGB-HEMOGLOBIN 8.2 gm/dl (13.5-17.0); MCH (MEAN CORPUSCULAR HGB) 31.1 pg (28.0-32.0); MCHC MEAN CORPUSCULAR HGB CONC 32.7 % (32.0-36.0); MCV (MEAN CELL VOLUME) 95.1 fl (82.0-96.0); PLATELET COUNT 70 tho/cmm (150-450); RED BLOOD COUNT 2.64 mil/cmm (4.40-5.70); RED CELL DISTRIBUTION WIDTH 20.8 % (12.4-16.4); WHITE BLOOD COUNT 5.7 tho/cmm (4.0-10.0)
[2017-02-06 03:53] LABS: ANION GAP 17 mmol/L (0-20); BLOOD UREA NITROGEN 16 mg/dl (6-24); CALCIUM 7.7 mg/dl (8.5-10.5); CARBON DIOXIDE-VENOUS 27 mmol/L (22-32); CHLORIDE 99 mmol/l (96-110); CREATININE 0.93 mg/dl (0.60-1.30); GLUCOSE 83 mg/dL (70-110); POTASSIUM 3.5 mmol/L (3.7-5.1); SODIUM 139 mmol/L (135-145); eGFR VALUE FOR BLACK >90 mL/Min
[2017-02-06 03:57] LABS: BASO % 0.9 % (0-2); BASO ABSOLUTE COUNT 0.1 tho/cmm (0.0-0.2); EOS % 2.8 % (0-7); EOSINOPHIL ABSOLUTE COUNT 0.2 tho/cmm (0.0-0.7); IMMATURE GRANULOCYTES ABSOLUTE 0.35 tho/cmm (0-0.03); IMMATURE GRANULOCYTES PERCENT 6.1 % (0-0.3); LYMPH % 15.4 % (20-45); LYMPH ABSOLUTE COUNT 0.9 tho/cmm (0.8-4.5); MONO % 4.7 % (0-12); MONOCYTE ABSOLUTE COUNT 0.3 tho/cmm (0.0-1.2); NEUTROPHILS % 70.1 % (40-80)
[2017-02-07 04:40] LABS: HCT-HEMATOCRIT 25.6 % (36.0-53.5); HGB-HEMOGLOBIN 8.3 gm/dl (13.5-17.0); MCH (MEAN CORPUSCULAR HGB) 31.2 pg (28.0-32.0); MCHC MEAN CORPUSCULAR HGB CONC 32.4 % (32.0-36.0); MCV (MEAN CELL VOLUME) 96.2 fl (82.0-96.0); MEAN PLATELET VOLUME 10.5 cmc (9.4-12.4); NEUTROPHIL-AUTOMATED 5.1 tho/cmm (1.6-8.0); PLATELET COUNT 88 tho/cmm (150-450); RED BLOOD COUNT 2.66 mil/cmm (4.40-5.70); RED CELL DISTRIBUTION WIDTH 21.2 % (12.4-16.4); WHITE BLOOD COUNT 6.9 tho/cmm (4.0-10.0)
[2017-02-07 04:45] LABS: BASO % 1.4 % (0-2); BASO ABSOLUTE COUNT 0.1 tho/cmm (0.0-0.2); EOS % 1.4 % (0-7); EOSINOPHIL ABSOLUTE COUNT 0.1 tho/cmm (0.0-0.7); IMMATURE GRANULOCYTES ABSOLUTE 0.44 tho/cmm (0-0.03); IMMATURE GRANULOCYTES PERCENT 6.4 % (0-0.3); LYMPH % 12.6 % (20-45); LYMPH ABSOLUTE COUNT 0.9 tho/cmm (0.8-4.5); MONO % 4.8 % (0-12); MONOCYTE ABSOLUTE COUNT 0.3 tho/cmm (0.0-1.2); NEUTROPHIL ABSOLUTE COUNT 5.1 tho/cmm (1.6-8.0); NEUTROPHILS % 73.4 % (40-80)
[2017-02-07 04:49] LABS: ALB/GLOB RATIO 0.6 (0.8-2.0); ALBUMIN 2.1 g/dl (3.5-5.0); ALKALINE PHOSPHATASE 169 U/L (33-138); ALT/SGPT 26 U/L (12-78); ANION GAP 17 mmol/L (0-20); AST/SGOT 40 U/L (10-40); BILIRUBIN,TOTAL 0.6 mg/dl (0.0-1.5); BLOOD UREA NITROGEN 16 mg/dl (6-24); CARBON DIOXIDE-VENOUS 26 mmol/L (22-32); CHLORIDE 100 mmol/l (96-110); CREATININE 0.91 mg/dl (0.60-1.30); GLUCOSE 82 mg/dL (70-110); POTASSIUM 3.5 mmol/L (3.7-5.1); SODIUM 139 mmol/L (135-145); eGFR VALUE FOR BLACK >90 mL/Min
[2017-02-07 08:15] LABS: ABG CO2 ARTERIAL 29 mmol/L (21-27); ARTERIAL BLD GAS O2 SATURATION 96 % (95-98); ARTERIAL BLOOD GAS PCO2 46 mmHg (32-45); ARTERIAL PO2 73 mmHg (70-100); BICARBONATE 27 mmol/L (21-28); BLOOD GAS BASE EXCESS 2 mM/L (-/+3); PH 7.39 Units (7.35-7.45)
[2017-02-08 04:31] LABS: HCT-HEMATOCRIT 25.9 % (36.0-53.5); HGB-HEMOGLOBIN 8.2 gm/dl (13.5-17.0); MCH (MEAN CORPUSCULAR HGB) 30.8 pg (28.0-32.0); MCHC MEAN CORPUSCULAR HGB CONC 31.7 % (32.0-36.0); MCV (MEAN CELL VOLUME) 97.4 fl (82.0-96.0); NEUTROPHIL-AUTOMATED 5.3 tho/cmm (1.6-8.0); PLATELET COUNT 124 tho/cmm (150-450); RED BLOOD COUNT 2.66 mil/cmm (4.40-5.70); RED CELL DISTRIBUTION WIDTH 21.7 % (12.4-16.4); WHITE BLOOD COUNT 7.6 tho/cmm (4.0-10.0)
[2017-02-08 04:34] LABS: BASO % 0.9 % (0-2); BASO ABSOLUTE COUNT 0.1 tho/cmm (0.0-0.2); EOS % 3.4 % (0-7); EOSINOPHIL ABSOLUTE COUNT 0.3 tho/cmm (0.0-0.7); IMMATURE GRANULOCYTES ABSOLUTE 0.47 tho/cmm (0-0.03); IMMATURE GRANULOCYTES PERCENT 6.2 % (0-0.3); LYMPH % 13.9 % (20-45); LYMPH ABSOLUTE COUNT 1.1 tho/cmm (0.8-4.5); MONO % 5.4 % (0-12); MONOCYTE ABSOLUTE COUNT 0.4 tho/cmm (0.0-1.2); NEUTROPHIL ABSOLUTE COUNT 5.3 tho/cmm (1.6-8.0); NEUTROPHILS % 70.2 % (40-80)
[2017-02-08 04:47] LABS: ALB/GLOB RATIO 0.6 (0.8-2.0); ALBUMIN 2.1 g/dl (3.5-5.0); ALKALINE PHOSPHATASE 169 U/L (33-138); ALT/SGPT 24 U/L (12-78); ANION GAP 16 mmol/L (0-20); AST/SGOT 42 U/L (10-40); BILIRUBIN,TOTAL 0.5 mg/dl (0.0-1.5); BLOOD UREA NITROGEN 15 mg/dl (6-24); CALCIUM 8.1 mg/dl (8.5-10.5); CARBON DIOXIDE-VENOUS 26 mmol/L (22-32); CHLORIDE 103 mmol/l (96-110); CREATININE 0.82 mg/dl (0.60-1.30); GLUCOSE 78 mg/dL (70-110); POTASSIUM 3.7 mmol/L (3.7-5.1); SODIUM 141 mmol/L (135-145); eGFR VALUE FOR BLACK >90 mL/Min
[2017-02-09 05:15] LABS: ABG CO2 ARTERIAL 27 mmol/L (21-27); ARTERIAL BLD GAS O2 SATURATION 93 % (95-98); ARTERIAL BLOOD GAS PCO2 51 mmHg (32-45); ARTERIAL PO2 65 mmHg (70-100); BICARBONATE 26 mmol/L (21-28); BLOOD GAS BASE EXCESS 0 mM/L (-/+3); PH 7.32 Units (7.35-7.45)
[2017-02-09 05:27] LABS: HCT-HEMATOCRIT 28.4 % (36.0-53.5); HGB-HEMOGLOBIN 8.9 gm/dl (13.5-17.0); MCH (MEAN CORPUSCULAR HGB) 30.2 pg (28.0-32.0); MCHC MEAN CORPUSCULAR HGB CONC 31.3 % (32.0-36.0); MCV (MEAN CELL VOLUME) 96.3 fl (82.0-96.0); MEAN PLATELET VOLUME 9.9 cmc (9.4-12.4); NEUTROPHIL-AUTOMATED 5.3 tho/cmm (1.6-8.0); PLATELET COUNT 175 tho/cmm (150-450); RED BLOOD COUNT 2.95 mil/cmm (4.40-5.70); RED CELL DISTRIBUTION WIDTH 21.3 % (12.4-16.4); WHITE BLOOD COUNT 8.4 tho/cmm (4.0-10.0)
[2017-02-09 05:42] LABS: ANION GAP 20 mmol/L (0-20); BLOOD UREA NITROGEN 16 mg/dl (6-24); CALCIUM 8.5 mg/dl (8.5-10.5); CARBON DIOXIDE-VENOUS 26 mmol/L (22-32); CHLORIDE 103 mmol/l (96-110); CREATININE 0.84 mg/dl (0.60-1.30); SODIUM 145 mmol/L (135-145); eGFR VALUE FOR BLACK >90 mL/Min
[2017-02-09 06:12] LABS: GLUCOSE 70 mg/dL (70-110)
[2017-02-09 07:37] LABS: BAND % 17 % (0-20); BAND ABSOLUTE COUNT 1.4 tho/cmm (0-2.0); EOSINOPHIL % 9 % (0-7)
[2017-02-09 22:14] LABS: INR 1.4 INR (0.9-1.1); PROTHROMBIN TIME 16.7 SECONDS (9.0-13.6)
[2017-02-10 04:07] LABS: ABG CO2 ARTERIAL 25 mmol/L (21-27); ARTERIAL BLD GAS O2 SATURATION 92 % (95-98); ARTERIAL PO2 59 mmHg (70-100); BICARBONATE 24 mmol/L (21-28); BLOOD GAS BASE EXCESS 0 mM/L (-/+3)
[2017-02-10 04:08] LABS: ARTERIAL BLOOD GAS PCO2 40 mmHg (32-45)
[2017-02-10 05:19] LABS: ESR-ERYTHROCYTE SED RATE 95 mm/hr (0-20)
[2017-02-10 05:24] LABS: HCT-HEMATOCRIT 30.1 % (36.0-53.5); HGB-HEMOGLOBIN 9.7 gm/dl (13.5-17.0); MCH (MEAN CORPUSCULAR HGB) 30.8 pg (28.0-32.0); MCHC MEAN CORPUSCULAR HGB CONC 32.2 % (32.0-36.0); MCV (MEAN CELL VOLUME) 95.6 fl (82.0-96.0); MEAN PLATELET VOLUME 10.6 cmc (9.4-12.4); NEUTROPHIL-AUTOMATED 5.9 tho/cmm (1.6-8.0); RED BLOOD COUNT 3.15 mil/cmm (4.40-5.70); RED CELL DISTRIBUTION WIDTH 21.6 % (12.4-16.4); WHITE BLOOD COUNT 8.6 tho/cmm (4.0-10.0)
[2017-02-10 05:34] LABS: ALB/GLOB RATIO 0.6 (0.8-2.0); ALBUMIN 2.4 g/dl (3.5-5.0); ALKALINE PHOSPHATASE 181 U/L (33-138); ALT/SGPT 23 U/L (12-78); ANION GAP 19 mmol/L (0-20); AST/SGOT 37 U/L (10-40); BILIRUBIN,TOTAL 0.5 mg/dl (0.0-1.5); BLOOD UREA NITROGEN 17 mg/dl (6-24); CALCIUM 9.4 mg/dl (8.5-10.5); CARBON DIOXIDE-VENOUS 25 mmol/L (22-32); CHLORIDE 102 mmol/l (96-110); CREATININE 0.88 mg/dl (0.60-1.30); POTASSIUM 4.7 mmol/L (3.7-5.1); SODIUM 141 mmol/L (135-145); eGFR VALUE FOR BLACK >90 mL/Min
[2017-02-10 05:51] LABS: PLATELET COUNT 291 tho/cmm (150-450)
[2017-02-10 06:09] LABS: GLUCOSE 122 mg/dL (70-110)
[2017-02-10 08:33] LABS: BAND % 21 % (0-20); BAND ABSOLUTE COUNT 1.8 tho/cmm (0-2.0)
[2017-02-10 11:10] LABS: BODY FLUID APPEARANCE HAZY (CLEAR); BODY FLUID COLOR YELLOW (COLORLESS); BODY FLUID RBC COUNT 3000 cmm (0); BODY FLUID TYPE PLEURAL; BODY FLUID VOLUME 1100 ml; BODY FLUID WBC COUNT 207 cmm
[2017-02-10 12:54] LABS: BODY FLUID EOSINOPHILS 1 %; BODY FLUID LYMPHOCYTES 82 %; BODY FLUID MACROPHAGES 3 %; BODY FLUID MESOTHELIAL CELLS 3 %; BODY FLUID NEUTROPHILS 11 %
[2017-02-10 16:16] LABS: BODY FLUID TYPE PLEURAL
[2017-02-11 05:10] LABS: HCT-HEMATOCRIT 30.9 % (36.0-53.5); HGB-HEMOGLOBIN 9.8 gm/dl (13.5-17.0); MCH (MEAN CORPUSCULAR HGB) 30.6 pg (28.0-32.0); MCHC MEAN CORPUSCULAR HGB CONC 31.7 % (32.0-36.0); MCV (MEAN CELL VOLUME) 96.6 fl (82.0-96.0); MEAN PLATELET VOLUME 10.1 cmc (9.4-12.4); NEUTROPHIL-AUTOMATED 9.3 tho/cmm (1.6-8.0); PLATELET COUNT 398 tho/cmm (150-450)
[2017-02-11 05:17] LABS: WHITE BLOOD COUNT 14.1 tho/cmm (4.0-10.0)
[2017-02-11 05:29] LABS: ANION GAP 22 mmol/L (0-20); CALCIUM 9.3 mg/dl (8.5-10.5); CARBON DIOXIDE-VENOUS 22 mmol/L (22-32); CHLORIDE 101 mmol/l (96-110); GLUCOSE 114 mg/dL (70-110); MAGNESIUM 2.3 mg/dl (1.8-2.6); POTASSIUM 4.6 mmol/L (3.7-5.1); SODIUM 140 mmol/L (135-145); eGFR VALUE FOR BLACK 82 mL/Min
[2017-02-11 05:32] LABS: BLOOD UREA NITROGEN 26 mg/dl (6-24)
[2017-02-11 06:54] LABS: BAND % 23 % (0-20); BAND ABSOLUTE COUNT 3.2 tho/cmm (0-2.0)
[2017-02-12 04:16] LABS: HCT-HEMATOCRIT 29.6 % (36.0-53.5); HGB-HEMOGLOBIN 9.4 gm/dl (13.5-17.0); MCH (MEAN CORPUSCULAR HGB) 30.7 pg (28.0-32.0); MCHC MEAN CORPUSCULAR HGB CONC 31.8 % (32.0-36.0); MCV (MEAN CELL VOLUME) 96.7 fl (82.0-96.0); NEUTROPHIL-AUTOMATED 8.8 tho/cmm (1.6-8.0); PLATELET COUNT 440 tho/cmm (150-450); RED BLOOD COUNT 3.06 mil/cmm (4.40-5.70); RED CELL DISTRIBUTION WIDTH 22.2 % (12.4-16.4); WHITE BLOOD COUNT 15.4 tho/cmm (4.0-10.0)
[2017-02-12 04:29] LABS: ANION GAP 21 mmol/L (0-20); BLOOD UREA NITROGEN 31 mg/dl (6-24); CALCIUM 9.3 mg/dl (8.5-10.5); CARBON DIOXIDE-VENOUS 23 mmol/L (22-32); CHLORIDE 101 mmol/l (96-110); CREATININE 1.03 mg/dl (0.60-1.30); GLUCOSE 77 mg/dL (70-110); POTASSIUM 4.6 mmol/L (3.7-5.1); SODIUM 140 mmol/L (135-145); eGFR VALUE FOR BLACK 89 mL/Min
[2017-02-12 07:40] LABS: BAND % 6 % (0-20); BAND ABSOLUTE COUNT 0.9 tho/cmm (0-2.0); EOSINOPHIL % 1 % (0-7)
[2017-02-12 07:42] LABS: WBC MORPHOLOGY VARIANT LYMPHS
[2017-02-13 05:39] LABS: HCT-HEMATOCRIT 30.9 % (36.0-53.5); HGB-HEMOGLOBIN 9.7 gm/dl (13.5-17.0); MCH (MEAN CORPUSCULAR HGB) 30.8 pg (28.0-32.0); MCHC MEAN CORPUSCULAR HGB CONC 31.4 % (32.0-36.0); MCV (MEAN CELL VOLUME) 98.1 fl (82.0-96.0); MEAN PLATELET VOLUME 9.7 cmc (9.4-12.4); NEUTROPHIL-AUTOMATED 7.6 tho/cmm (1.6-8.0); PLATELET COUNT 482 tho/cmm (150-450); RED BLOOD COUNT 3.15 mil/cmm (4.40-5.70); RED CELL DISTRIBUTION WIDTH 22.3 % (12.4-16.4); WHITE BLOOD COUNT 14.3 tho/cmm (4.0-10.0)
[2017-02-13 05:40] LABS: BASO % 0.8 % (0-2); BASO ABSOLUTE COUNT 0.1 tho/cmm (0.0-0.2); EOS % 0.3 % (0-7); EOSINOPHIL ABSOLUTE COUNT 0.1 tho/cmm (0.0-0.7); IMMATURE GRANULOCYTES ABSOLUTE 1.83 tho/cmm (0-0.03); IMMATURE GRANULOCYTES PERCENT 12.8 % (0-0.3); LYMPH % 15.5 % (20-45); LYMPH ABSOLUTE COUNT 2.2 tho/cmm (0.8-4.5); MONO % 17.5 % (0-12); MONOCYTE ABSOLUTE COUNT 2.5 tho/cmm (0.0-1.2); NEUTROPHIL ABSOLUTE COUNT 7.6 tho/cmm (1.6-8.0); NEUTROPHILS % 53.1 % (40-80)
[2017-02-13 05:52] LABS: ANION GAP 20 mmol/L (0-20); BLOOD UREA NITROGEN 30 mg/dl (6-24); CALCIUM 9.2 mg/dl (8.5-10.5); CARBON DIOXIDE-VENOUS 24 mmol/L (22-32); CHLORIDE 99 mmol/l (96-110); CREATININE 1.06 mg/dl (0.60-1.30); POTASSIUM 4.3 mmol/L (3.7-5.1); SODIUM 139 mmol/L (135-145); eGFR VALUE FOR BLACK 86 mL/Min
[2017-02-13 05:57] LABS: GLUCOSE 55 mg/dL (70-110)
[2017-02-14 04:59] LABS: HCT-HEMATOCRIT 30.7 % (36.0-53.5); HGB-HEMOGLOBIN 9.5 gm/dl (13.5-17.0); MCH (MEAN CORPUSCULAR HGB) 30.4 pg (28.0-32.0); MCHC MEAN CORPUSCULAR HGB CONC 30.9 % (32.0-36.0); MCV (MEAN CELL VOLUME) 98.1 fl (82.0-96.0); NEUTROPHIL-AUTOMATED 7.8 tho/cmm (1.6-8.0); PLATELET COUNT 461 tho/cmm (150-450); RED BLOOD COUNT 3.13 mil/cmm (4.40-5.70); WHITE BLOOD COUNT 13.8 tho/cmm (4.0-10.0)
[2017-02-14 05:12] LABS: BASO % 1.4 % (0-2); BASO ABSOLUTE COUNT 0.2 tho/cmm (0.0-0.2); EOS % 0.4 % (0-7); EOSINOPHIL ABSOLUTE COUNT 0.1 tho/cmm (0.0-0.7); IMMATURE GRANULOCYTES ABSOLUTE 1.67 tho/cmm (0-0.03); IMMATURE GRANULOCYTES PERCENT 12.1 % (0-0.3); LYMPH % 13.9 % (20-45); LYMPH ABSOLUTE COUNT 1.9 tho/cmm (0.8-4.5); MONO % 15.7 % (0-12); MONOCYTE ABSOLUTE COUNT 2.2 tho/cmm (0.0-1.2); NEUTROPHIL ABSOLUTE COUNT 7.8 tho/cmm (1.6-8.0); NEUTROPHILS % 56.5 % (40-80)
[2017-02-14 16:49] LABS: ANION GAP 27 mmol/L (0-20); BLOOD UREA NITROGEN 35 mg/dl (6-24); CALCIUM 9.3 mg/dl (8.5-10.5); CARBON DIOXIDE-VENOUS 24 mmol/L (22-32); CHLORIDE 92 mmol/l (96-110); CREATININE 1.25 mg/dl (0.60-1.30); GLUCOSE 135 mg/dL (70-110); POTASSIUM 4.5 mmol/L (3.7-5.1); SODIUM 138 mmol/L (135-145); eGFR VALUE FOR BLACK 71 mL/Min
[2017-02-15 05:13] LABS: HCT-HEMATOCRIT 30.1 % (36.0-53.5); HGB-HEMOGLOBIN 9.5 gm/dl (13.5-17.0); MCH (MEAN CORPUSCULAR HGB) 30.9 pg (28.0-32.0); MCHC MEAN CORPUSCULAR HGB CONC 31.6 % (32.0-36.0); MEAN PLATELET VOLUME 9.8 cmc (9.4-12.4); NEUTROPHIL-AUTOMATED 8.3 tho/cmm (1.6-8.0); PLATELET COUNT 444 tho/cmm (150-450); RED BLOOD COUNT 3.07 mil/cmm (4.40-5.70); WHITE BLOOD COUNT 14.3 tho/cmm (4.0-10.0)
[2017-02-15 05:31] LABS: ANION GAP 25 mmol/L (0-20); BLOOD UREA NITROGEN 33 mg/dl (6-24); CALCIUM 9.2 mg/dl (8.5-10.5); CARBON DIOXIDE-VENOUS 24 mmol/L (22-32); CHLORIDE 95 mmol/l (96-110); CREATININE 1.17 mg/dl (0.60-1.30); POTASSIUM 4.2 mmol/L (3.7-5.1); SODIUM 140 mmol/L (135-145); eGFR VALUE FOR BLACK 76 mL/Min
[2017-02-15 05:33] LABS: GLUCOSE 60 mg/dL (70-110)
[2017-02-15 08:58] LABS: BAND % 6 % (0-20); BAND ABSOLUTE COUNT 0.9 tho/cmm (0-2.0); WBC MORPHOLOGY VACUOLES
[2017-02-16 04:32] LABS: HCT-HEMATOCRIT 31.3 % (36.0-53.5); HGB-HEMOGLOBIN 9.8 gm/dl (13.5-17.0); MCH (MEAN CORPUSCULAR HGB) 30.7 pg (28.0-32.0); MCHC MEAN CORPUSCULAR HGB CONC 31.3 % (32.0-36.0); MCV (MEAN CELL VOLUME) 98.1 fl (82.0-96.0); NEUTROPHIL-AUTOMATED 11.1 tho/cmm (1.6-8.0); PLATELET COUNT 435 tho/cmm (150-450); RED BLOOD COUNT 3.19 mil/cmm (4.40-5.70); RED CELL DISTRIBUTION WIDTH 21.9 % (12.4-16.4); WHITE BLOOD COUNT 17.2 tho/cmm (4.0-10.0)
[2017-02-16 04:43] LABS: ANION GAP 24 mmol/L (0-20); BLOOD UREA NITROGEN 32 mg/dl (6-24); CALCIUM 9.6 mg/dl (8.5-10.5); CARBON DIOXIDE-VENOUS 27 mmol/L (22-32); CHLORIDE 89 mmol/l (96-110); CREATININE 1.06 mg/dl (0.60-1.30); MAGNESIUM 2.1 mg/dl (1.8-2.6); POTASSIUM 4.2 mmol/L (3.7-5.1); SODIUM 136 mmol/L (135-145); eGFR VALUE FOR BLACK 86 mL/Min
[2017-02-16 05:10] LABS: GLUCOSE 61 mg/dL (70-110)
[2017-02-16 05:46] LABS: BAND % 2 % (0-20); BAND ABSOLUTE COUNT 0.3 tho/cmm (0-2.0)
[2017-02-17 05:14] LABS: HCT-HEMATOCRIT 27.5 % (36.0-53.5); HGB-HEMOGLOBIN 8.8 gm/dl (13.5-17.0); MCH (MEAN CORPUSCULAR HGB) 31.1 pg (28.0-32.0); MCV (MEAN CELL VOLUME) 97.2 fl (82.0-96.0); MEAN PLATELET VOLUME 10.1 cmc (9.4-12.4); NEUTROPHIL-AUTOMATED 7.6 tho/cmm (1.6-8.0); PLATELET COUNT 344 tho/cmm (150-450); RED BLOOD COUNT 2.83 mil/cmm (4.40-5.70); RED CELL DISTRIBUTION WIDTH 21.5 % (12.4-16.4); WHITE BLOOD COUNT 12.2 tho/cmm (4.0-10.0)
[2017-02-17 05:31] LABS: ANION GAP 19 mmol/L (0-20); BLOOD UREA NITROGEN 30 mg/dl (6-24); CARBON DIOXIDE-VENOUS 35 mmol/L (22-32); CHLORIDE 89 mmol/l (96-110); CREATININE 1.06 mg/dl (0.60-1.30); SODIUM 139 mmol/L (135-145); eGFR VALUE FOR BLACK 86 mL/Min
[2017-02-17 05:58] LABS: GLUCOSE 62 mg/dL (70-110)
[2017-02-17 08:28] LABS: BAND % 6 % (0-20); BAND ABSOLUTE COUNT 0.7 tho/cmm (0-2.0); EOSINOPHIL % 1 % (0-7)
[2017-02-18 05:39] LABS: HCT-HEMATOCRIT 28.9 % (36.0-53.5); HGB-HEMOGLOBIN 9.1 gm/dl (13.5-17.0); MCH (MEAN CORPUSCULAR HGB) 31.2 pg (28.0-32.0); MCHC MEAN CORPUSCULAR HGB CONC 31.5 % (32.0-36.0); MEAN PLATELET VOLUME 10.2 cmc (9.4-12.4); NEUTROPHIL-AUTOMATED 7.2 tho/cmm (1.6-8.0); PLATELET COUNT 303 tho/cmm (150-450); RED BLOOD COUNT 2.92 mil/cmm (4.40-5.70); RED CELL DISTRIBUTION WIDTH 21.6 % (12.4-16.4); WHITE BLOOD COUNT 11.5 tho/cmm (4.0-10.0)
[2017-02-18 05:47] LABS: ANION GAP 23 mmol/L (0-20); BLOOD UREA NITROGEN 20 mg/dl (6-24); CALCIUM 9.2 mg/dl (8.5-10.5); CARBON DIOXIDE-VENOUS 30 mmol/L (22-32); CHLORIDE 90 mmol/l (96-110); CREATININE 0.88 mg/dl (0.60-1.30); SODIUM 139 mmol/L (135-145); eGFR VALUE FOR BLACK >90 mL/Min
[2017-02-18 05:54] LABS: BASO % 0.5 % (0-2); BASO ABSOLUTE COUNT 0.1 tho/cmm (0.0-0.2); EOS % 1.2 % (0-7); EOSINOPHIL ABSOLUTE COUNT 0.1 tho/cmm (0.0-0.7); IMMATURE GRANULOCYTES ABSOLUTE 0.69 tho/cmm (0-0.03); LYMPH % 12.3 % (20-45); LYMPH ABSOLUTE COUNT 1.4 tho/cmm (0.8-4.5); MONO % 17.9 % (0-12); MONOCYTE ABSOLUTE COUNT 2.1 tho/cmm (0.0-1.2); NEUTROPHIL ABSOLUTE COUNT 7.2 tho/cmm (1.6-8.0); NEUTROPHILS % 62.1 % (40-80)
[2017-02-18 05:58] LABS: GLUCOSE 64 mg/dL (70-110)
--- NOTE | 2017-02-18 06:02 | NUR ---
BLOOD GLUCOSE WITH MORNING LABS 64; GAVE PT JUICE AND CRACKERS, BUT HE PREFERS TO NOT AGGRESSIVELY TREAT HYPOGLYCEMIA, WHICH IS A CHRONIC ISSUE FOR HIM.
[2017-02-20 05:04] LABS: BASO % 0.5 % (0-2); BASO ABSOLUTE COUNT 0.1 tho/cmm (0.0-0.2); EOS % 1.2 % (0-7); EOSINOPHIL ABSOLUTE COUNT 0.1 tho/cmm (0.0-0.7); HCT-HEMATOCRIT 27.8 % (36.0-53.5); HGB-HEMOGLOBIN 8.7 gm/dl (13.5-17.0); IMMATURE GRANULOCYTES ABSOLUTE 0.33 tho/cmm (0-0.03); LYMPH % 12.6 % (20-45); LYMPH ABSOLUTE COUNT 1.4 tho/cmm (0.8-4.5); MCH (MEAN CORPUSCULAR HGB) 30.9 pg (28.0-32.0); MCHC MEAN CORPUSCULAR HGB CONC 31.3 % (32.0-36.0); MCV (MEAN CELL VOLUME) 98.6 fl (82.0-96.0); MEAN PLATELET VOLUME 10.7 cmc (9.4-12.4); MONO % 15.9 % (0-12); MONOCYTE ABSOLUTE COUNT 1.7 tho/cmm (0.0-1.2); NEUTROPHIL ABSOLUTE COUNT 7.3 tho/cmm (1.6-8.0); NEUTROPHIL-AUTOMATED 7.3 tho/cmm (1.6-8.0); NEUTROPHILS % 66.8 % (40-80); PLATELET COUNT 246 tho/cmm (150-450); RED BLOOD COUNT 2.82 mil/cmm (4.40-5.70); RED CELL DISTRIBUTION WIDTH 21.5 % (12.4-16.4); WHITE BLOOD COUNT 10.9 tho/cmm (4.0-10.0)
[2017-02-20 05:23] LABS: ALB/GLOB RATIO 0.8 (0.8-2.0); ALBUMIN 2.7 g/dl (3.5-5.0); ALKALINE PHOSPHATASE 143 U/L (33-138); ALT/SGPT 19 U/L (12-78); ANION GAP 22 mmol/L (0-20); AST/SGOT 26 U/L (10-40); BILIRUBIN,TOTAL 0.6 mg/dl (0.0-1.5); BLOOD UREA NITROGEN 22 mg/dl (6-24); CALCIUM 8.8 mg/dl (8.5-10.5); CARBON DIOXIDE-VENOUS 32 mmol/L (22-32); CHLORIDE 89 mmol/l (96-110); CREATININE 0.96 mg/dl (0.60-1.30); POTASSIUM 3.6 mmol/L (3.7-5.1); SODIUM 139 mmol/L (135-145); eGFR VALUE FOR BLACK >90 mL/Min
[2017-02-20 05:24] LABS: GLUCOSE 63 mg/dL (70-110)
[2017-02-20] MEDS ORDERED: TOPROL XL25 M1 PO (11:29)
== END 2017-02-20 13:25 | DRG 853 ==
LOC: EDMED 21:34 → EMR2 02-04 02:16 → CCU 02-04 04:38 → PCUA 02-11 17:55
PROVIDERS: Emergency Medicine; Family Medicine; Internal Medicine; Internal Medicine Cardiovascular Disease; Internal Medicine Pulmonary Disease; Radiology Diagnostic Radiology; Registered Nurse; ADMIT Family Medicine
PROC: 02HV33Z Insertion of Infusion Device into Superior Vena Cava, Percutaneous Approach (ICD-10-PCS; 2017-02-04)
PROC: B548ZZA Ultrasonography of Superior Vena Cava, Guidance (ICD-10-PCS; 2017-02-04)
PROC: 0HB8XZZ Excision of Buttock Skin, External Approach (ICD-10-PCS; principal; 2017-02-08)
PROC: 0HBKXZZ Excision of Right Lower Leg Skin, External Approach (ICD-10-PCS; 2017-02-08)
PROC: 0HBLXZZ Excision of Left Lower Leg Skin, External Approach (ICD-10-PCS; 2017-02-08)
PROC: 0W9930Z Drainage of Right Pleural Cavity with Drainage Device, Percutaneous Approach (ICD-10-PCS; 2017-02-10)
DX: A41.9 Sepsis, unspecified organism (principal); I50.23 Acute on chronic systolic (congestive) heart failure; J96.01 Acute respiratory failure with hypoxia; R65.21 Severe sepsis with septic shock; J18.9 Pneumonia, unspecified organism; J90 Pleural effusion, not elsewhere classified; C25.9 Malignant neoplasm of pancreas, unspecified; C78.00 Secondary malignant neoplasm of unspecified lung; E66.01 Morbid (severe) obesity due to excess calories; N17.9 Acute kidney failure, unspecified; E46 Unspecified protein-calorie malnutrition; I42.9 Cardiomyopathy, unspecified; C78.7 Secondary malignant neoplasm of liver and intrahepatic bile duct; N39.0 Urinary tract infection, site not specified; N18.3 Chronic kidney disease, stage 3 (moderate); Z51.5 Encounter for palliative care; E03.9 Hypothyroidism, unspecified; E78.5 Hyperlipidemia, unspecified; I48.2 Chronic atrial fibrillation; Z68.38 Body mass index [BMI] 38.0-38.9, adult; L89.312 Pressure ulcer of right buttock, stage 2; I87.2 Venous insufficiency (chronic) (peripheral); Z86.711 Personal history of pulmonary embolism
CPT/HCPCS: C1729; C1751; C1769; J0690; J1940; J1956; J2543; J2930; J2997; J3010; J3370; J7030; J7040; J7050; J7512; P9016; P9045; P9047